=== PATIENT | female | born 1950 | race Two or more races ===

== ENCOUNTER 2017-10-26 07:43 | Outpatient (CLI) | payer OTHER ==
[~2017-10-26 07:43] MED LIST: CATAFLAM50 MG PO; COZAAR50 MG; LIPITOR20 MG; SEPTRA DS TABLE1 TAB PO; SYNTHROID50 MCG
== END 2017-10-26 09:03 | disposition home or self-care (01) ==
LOC: LAB 07:43
DX: C50.912 Malignant neoplasm of unspecified site of left female breast (principal); K92.2 Gastrointestinal hemorrhage, unspecified; E55.9 Vitamin D deficiency, unspecified; E03.8 Other specified hypothyroidism; D89.0 Polyclonal hypergammaglobulinemia; E78.2 Mixed hyperlipidemia; I10 Essential (primary) hypertension; R31.9 Hematuria, unspecified; D70.9 Neutropenia, unspecified

== ENCOUNTER → 2017-11-09 | Outpatient (CLI) | payer OTHER | END | disposition home or self-care (01) | LOC: LAB 08:17 | DX: C50.912 Malignant neoplasm of unspecified site of left female breast (principal); K92.89 Other specified diseases of the digestive system; E55.9 Vitamin D deficiency, unspecified; E03.8 Other specified hypothyroidism; D89.0 Polyclonal hypergammaglobulinemia; E78.00 Pure hypercholesterolemia, unspecified; I10 Essential (primary) hypertension; R31.29 Other microscopic hematuria; D70.8 Other neutropenia ==

== ENCOUNTER 2018-03-26 07:57 | Outpatient (CLI) | payer OTHER | END 2018-03-26 08:06 | disposition home or self-care (01) | LOC: LAB 07:57 | DX: D63.8 Anemia in other chronic diseases classified elsewhere (principal); N39.0 Urinary tract infection, site not specified; D68.8 Other specified coagulation defects; J20.8 Acute bronchitis due to other specified organisms ==

== ENCOUNTER 2018-08-12 13:24 | Emergency (ER) | payer OTHER ==
[~2018-08-12] VITALS: Ht 154.9 cm; Wt 62.6 kg
== END 2018-08-12 18:35 | disposition home or self-care (01) ==
LOC: ER 13:24
DX: S40.011A Contusion of right shoulder, initial encounter (principal); W18.39XA Other fall on same level, initial encounter; Y93.89 Activity, other specified; Y92.098 Other place in other non-institutional residence as the place of occurrence of the external cause; Y99.8 Other external cause status

== ENCOUNTER 2018-10-13 08:10 | Outpatient (CLI) | payer OTHER | END 2018-10-13 08:20 | disposition home or self-care (01) | LOC: LAB 08:10 | DX: C50.911 Malignant neoplasm of unspecified site of right female breast (principal); C50.912 Malignant neoplasm of unspecified site of left female breast; E03.8 Other specified hypothyroidism; E55.9 Vitamin D deficiency, unspecified; E78.00 Pure hypercholesterolemia, unspecified; I10 Essential (primary) hypertension; R31.9 Hematuria, unspecified; D70.8 Other neutropenia ==

== ENCOUNTER 2018-10-19 10:32 | Outpatient (CLI) | payer OTHER | END 2018-10-19 12:43 | disposition home or self-care (01) | LOC: NUCLEAR 10:32 | DX: M81.0 Age-related osteoporosis without current pathological fracture (principal) ==

== ENCOUNTER 2018-12-08 07:31 | Outpatient (CLI) | payer OTHER | END 2018-12-08 08:16 | disposition home or self-care (01) | LOC: LAB 07:31 | DX: M10.072 Idiopathic gout, left ankle and foot (principal) ==

== ENCOUNTER 2018-12-12 08:17 | Outpatient (CLI) | payer OTHER | END 2018-12-12 10:36 | disposition home or self-care (01) | LOC: NUCLEAR 08:17 | DX: I82.409 Acute embolism and thrombosis of unspecified deep veins of unspecified lower extremity (principal); I70.209 Unspecified atherosclerosis of native arteries of extremities, unspecified extremity; I73.9 Peripheral vascular disease, unspecified ==

== ENCOUNTER → 2018-12-13 | Outpatient (CLI) | payer OTHER | END | disposition home or self-care (01) | LOC: NUCLEAR 09:25 | DX: I82.409 Acute embolism and thrombosis of unspecified deep veins of unspecified lower extremity (principal); I70.209 Unspecified atherosclerosis of native arteries of extremities, unspecified extremity ==

== ENCOUNTER 2019-06-21 07:19 | Outpatient (CLI) | payer OTHER | END 2019-06-21 07:26 | disposition home or self-care (01) | LOC: LAB 07:19 | DX: N39.0 Urinary tract infection, site not specified (principal) ==

== ENCOUNTER 2019-10-18 07:42 | Outpatient (CLI) | payer OTHER | END 2019-10-18 07:50 | disposition home or self-care (01) | LOC: LAB 07:42 | DX: C50.912 Malignant neoplasm of unspecified site of left female breast (principal); Z12.11 Encounter for screening for malignant neoplasm of colon; E55.9 Vitamin D deficiency, unspecified; E03.8 Other specified hypothyroidism; E78.00 Pure hypercholesterolemia, unspecified; I10 Essential (primary) hypertension; R31.29 Other microscopic hematuria; D70.8 Other neutropenia ==

== ENCOUNTER 2019-10-20 07:33 | Outpatient (CLI) | payer OTHER | END 2019-10-20 08:13 | disposition home or self-care (01) | LOC: LAB 07:33 | DX: C50.912 Malignant neoplasm of unspecified site of left female breast (principal); Z12.11 Encounter for screening for malignant neoplasm of colon; E55.9 Vitamin D deficiency, unspecified; E03.8 Other specified hypothyroidism ==

== ENCOUNTER 2020-04-04 07:35 | Outpatient (CLI) | payer OTHER | END 2020-04-04 07:43 | disposition home or self-care (01) | LOC: LAB 07:35 | PROVIDERS: ATTEND Internal Medicine Hematology & Oncology | DX: C50.912 Malignant neoplasm of unspecified site of left female breast (principal); E55.9 Vitamin D deficiency, unspecified; E03.8 Other specified hypothyroidism; E11.9 Type 2 diabetes mellitus without complications; E78.00 Pure hypercholesterolemia, unspecified; I10 Essential (primary) hypertension; R31.29 Other microscopic hematuria; M06.9 Rheumatoid arthritis, unspecified; D70.8 Other neutropenia ==

== ENCOUNTER → 2020-05-10 | Outpatient (CLI) | payer OTHER | END | disposition home or self-care (01) | LOC: RAD 10:09 | PROVIDERS: ATTEND Orthopaedic Surgery | DX: M79.622 Pain in left upper arm (principal) ==

== ENCOUNTER 2020-11-22 07:17 | Outpatient (CLI) | payer OTHER | END 2020-11-22 07:25 | disposition home or self-care (01) | LOC: LAB 07:17 | PROVIDERS: ATTEND Internal Medicine Hematology & Oncology | DX: E03.8 Other specified hypothyroidism (principal); E55.9 Vitamin D deficiency, unspecified; C50.912 Malignant neoplasm of unspecified site of left female breast; E78.00 Pure hypercholesterolemia, unspecified; E11.9 Type 2 diabetes mellitus without complications; I10 Essential (primary) hypertension; R31.29 Other microscopic hematuria; M06.8A Other specified rheumatoid arthritis, other specified site; D70.8 Other neutropenia ==

== ENCOUNTER 2021-01-15 08:22 | Emergency (ER) | payer OTHER ==
[~2021-01-15] VITALS: Ht 154.9 cm; Wt 63.5 kg
[2021-01-15] MEDS ORDERED: VALACYCLOVIR500 MG PO (08:53)
[2021-01-15] MEDS ORDERED: AMLODIPINE-OLM1 EAC2 PO (08:54)
[2021-01-15] MEDS ORDERED: ANTI-ITCH28 G1 TOP (12:55)
[2021-01-15] MEDS ORDERED: ZYRTEC10 M3 PO (12:55)
== END 2021-01-15 12:59 | disposition home or self-care (01) ==
LOC: ER 08:22
DX: R21 Rash and other nonspecific skin eruption (principal); S70.362A Insect bite (nonvenomous), left thigh, initial encounter; S70.361A Insect bite (nonvenomous), right thigh, initial encounter; S80.861A Insect bite (nonvenomous), right lower leg, initial encounter; S20.461A Insect bite (nonvenomous) of right back wall of thorax, initial encounter; S50.862A Insect bite (nonvenomous) of left forearm, initial encounter; S50.861A Insect bite (nonvenomous) of right forearm, initial encounter; W57.XXXA Bitten or stung by nonvenomous insect and other nonvenomous arthropods, initial encounter; Y93.01 Activity, walking, marching and hiking; Y92.832 Beach as the place of occurrence of the external cause; Y99.8 Other external cause status

== ENCOUNTER 2021-01-28 14:15 | Outpatient (CLI) | payer OTHER ==
[~2021-01-28 14:15] MED LIST changes: +AMLODIPINE-OLM1 EAC2 PO; +ANTI-ITCH28 G1 TOP; +VALACYCLOVIR500 MG PO; +ZYRTEC10 M3 PO
== END 2021-01-28 14:19 | disposition home or self-care (01) ==
LOC: NUCLEAR 14:15
PROVIDERS: ATTEND Internal Medicine Hematology & Oncology
DX: M81.0 Age-related osteoporosis without current pathological fracture (principal)

== ENCOUNTER 2021-03-16 15:52 | Emergency (ER) | payer OTHER ==
[~2021-03-16] VITALS: Ht 154.9 cm; Wt 60.3 kg
== END 2021-03-16 19:51 | disposition home or self-care (01) ==
LOC: ER 15:52
DX: R21 Rash and other nonspecific skin eruption (principal); L53.8 Other specified erythematous conditions; L30.8 Other specified dermatitis

== ENCOUNTER → 2021-04-15 07:47 | Outpatient (CLI) | payer OTHER | END | disposition home or self-care (01) | LOC: LAB 07:47 | PROVIDERS: ATTEND General Practice | DX: M79.7 Fibromyalgia (principal); E55.9 Vitamin D deficiency, unspecified; E53.8 Deficiency of other specified B group vitamins; E78.2 Mixed hyperlipidemia; Z12.11 Encounter for screening for malignant neoplasm of colon; B18.2 Chronic viral hepatitis C; A64 Unspecified sexually transmitted disease; E03.8 Other specified hypothyroidism; E72.11 Homocystinuria; N39.0 Urinary tract infection, site not specified; M06.9 Rheumatoid arthritis, unspecified ==

== ENCOUNTER 2021-04-15 08:37 | Outpatient (CLI) | payer OTHER | END 2021-04-15 08:42 | disposition home or self-care (01) | LOC: RAD 08:37 | PROVIDERS: ATTEND General Practice | DX: R07.89 Other chest pain (principal) ==

== ENCOUNTER → 2021-04-16 08:38 | Outpatient (CLI) | payer OTHER | END | disposition home or self-care (01) | LOC: LAB 08:38 | PROVIDERS: ATTEND General Practice | DX: Z12.11 Encounter for screening for malignant neoplasm of colon (principal) ==

== ENCOUNTER 2021-12-12 12:20 | Outpatient (CLI) | payer OTHER | END 2021-12-12 13:00 | disposition home or self-care (01) | LOC: NUCLEAR 12:20 | PROVIDERS: ATTEND Orthopaedic Surgery | DX: M81.0 Age-related osteoporosis without current pathological fracture (principal) ==

== ENCOUNTER 2022-03-13 08:40 | Outpatient (CLI) | payer OTHER | END 2022-03-13 08:46 | disposition home or self-care (01) | LOC: LAB 08:40 | DX: E78.1 Pure hyperglyceridemia (principal); I10 Essential (primary) hypertension; E03.8 Other specified hypothyroidism; E53.8 Deficiency of other specified B group vitamins; Z12.11 Encounter for screening for malignant neoplasm of colon ==

== ENCOUNTER 2022-09-16 10:41 | Outpatient (CLI) | payer OTHER | END 2022-09-16 10:42 | disposition home or self-care (01) | LOC: RAD 10:41 | PROVIDERS: ATTEND Orthopaedic Surgery | DX: S60.221A Contusion of right hand, initial encounter (principal) ==

== ENCOUNTER → 2022-12-11 07:41 | Outpatient (CLI) | payer OTHER | END | disposition home or self-care (01) | LOC: LAB 07:41 | PROVIDERS: ATTEND General Practice | DX: E03.8 Other specified hypothyroidism (principal); E78.1 Pure hyperglyceridemia; I10 Essential (primary) hypertension ==

== ENCOUNTER 2022-12-11 08:55 | Outpatient (CLI) | payer OTHER | END 2022-12-11 09:02 | disposition home or self-care (01) | LOC: RAD 08:55 | PROVIDERS: ATTEND Orthopaedic Surgery | DX: S62.654D Nondisplaced fracture of middle phalanx of right ring finger, subsequent encounter for fracture with routine healing (principal) ==

== ENCOUNTER → 2022-12-25 08:14 | Outpatient (CLI) | payer OTHER | END | disposition home or self-care (01) | LOC: NUCLEAR 12-18 13:02 → LAB 08:14 | PROVIDERS: ATTEND Orthopaedic Surgery | DX: E55.9 Vitamin D deficiency, unspecified (principal); M85.9 Disorder of bone density and structure, unspecified; E56.1 Deficiency of vitamin K ==

== ENCOUNTER 2023-04-05 08:24 | Outpatient (CLI) | payer OTHER | END 2023-04-05 08:25 | disposition home or self-care (01) | LOC: LAB 08:24 | DX: C50.912 Malignant neoplasm of unspecified site of left female breast (principal); E55.9 Vitamin D deficiency, unspecified; E03.9 Hypothyroidism, unspecified; K74.60 Unspecified cirrhosis of liver; I10 Essential (primary) hypertension; E78.00 Pure hypercholesterolemia, unspecified; R31.9 Hematuria, unspecified; M06.9 Rheumatoid arthritis, unspecified; D70.9 Neutropenia, unspecified ==

== ENCOUNTER 2023-04-12 07:38 | Outpatient (CLI) | payer OTHER | END 2023-04-12 14:27 | disposition home or self-care (01) | LOC: LAB 07:38 | DX: E78.2 Mixed hyperlipidemia (principal); E03.8 Other specified hypothyroidism; I10 Essential (primary) hypertension; Z12.11 Encounter for screening for malignant neoplasm of colon ==

== ENCOUNTER → 2023-04-14 08:10 | Outpatient (CLI) | payer OTHER | END | disposition home or self-care (01) | LOC: LAB 08:10 | DX: Z12.11 Encounter for screening for malignant neoplasm of colon (principal) ==

== ENCOUNTER 2023-06-22 07:38 | Outpatient (CLI) | payer OTHER | END 2023-06-22 07:40 | disposition home or self-care (01) | LOC: LAB 07:38 | DX: E78.2 Mixed hyperlipidemia (principal); I10 Essential (primary) hypertension; E03.8 Other specified hypothyroidism ==

== ENCOUNTER 2023-10-26 08:02 | Outpatient (CLI) | payer OTHER ==
[2023-10-26 08:40] LABS: PH,URINE 5.5 (5.0-8.0); URINE APPEARANCE Clear; URINE BILIRRUBIN Negative (NEGATIVE); URINE BLOOD Negative; URINE COLOR Yellow; URINE GLUCOSE Negative (NEGATIVE); URINE LEUKOCYTE Negative; URINE NITRATE Negative; URINE PROTEIN Negative (NEGATIVE); URINE UROBILINOGEN 0.2 E.U./dl
[2023-10-26 08:41] LABS: URINE BACTERIA 7.5 uL (0.0-1933); URINE RBC 5.4 uL (0.0-20.8)
[2023-10-26 08:43] LABS: HEMATOCRIT 41.7 % (36.0-45.00); HEMOGLOBIN 14.4 g/dL (12.0-15.00); MEAN CORPUSCULAR HEMOGLOBIN 33.1 pg (27.00-32.0); MEAN CORPUSCULAR HGB CONC 34.5 g/dl (32.0-36.0); PLATELET COUNT 338 K/uL (150-450); RED BLOOD COUNT 4.35 M/uL (4.00-6.00); RED CELL DISTRIBUTION WIDTH 12.5 % (11.5-14.5)
[2023-10-26 09:19] LABS: ALBUMIN 4.1 gm/dL (3.4-5.0); BILIRUBIN TOTAL 0.52 mg/dL (0.3-1.2); CALCIUM 9.4 mg/dL (8.5-10.1); CHOL HDL RATIO 2.8 (0-5.0); CREATININE SERUM 0.76 mg/dL (0.55-1.02); GFR 74.81; GLOBULINA 3.5 G/DL (2.4-3.5); POTASSIUM 4.09 mEq/L (3.5-5.1); TOTAL PROTEIN 7.6 gm/dL (6.4-8.2); TSH 1.85 uIU/mL (0.358-3.74)
== END 2023-10-26 08:03 | disposition home or self-care (01) ==
LOC: LAB 08:02
PROVIDERS: ATTEND General Practice
DX: Z12.11 Encounter for screening for malignant neoplasm of colon (principal); I10 Essential (primary) hypertension; E11.9 Type 2 diabetes mellitus without complications

== ENCOUNTER 2023-10-26 09:09 | Outpatient (CLI) | payer OTHER | END 2023-10-26 09:23 | disposition home or self-care (01) | LOC: RAD 09:09 | PROVIDERS: ATTEND General Practice | DX: M79.641 Pain in right hand (principal); M79.642 Pain in left hand ==

== ENCOUNTER 2023-11-03 07:58 | Outpatient (CLI) | payer OTHER ==
[2023-11-03 12:13] LABS: ob NEGATIVE (NEGATIVE)
== END 2023-11-03 07:59 | disposition home or self-care (01) ==
LOC: LAB 07:58
PROVIDERS: ATTEND General Practice
DX: I10 Essential (primary) hypertension (principal); Z12.11 Encounter for screening for malignant neoplasm of colon; E11.9 Type 2 diabetes mellitus without complications; E03.9 Hypothyroidism, unspecified

== ENCOUNTER → 2023-12-20 10:50 | Outpatient (CLI) | payer OTHER | END | disposition home or self-care (01) | LOC: NUCLEAR 12-17 11:44 | PROVIDERS: ATTEND Specialist | DX: M81.0 Age-related osteoporosis without current pathological fracture (principal) ==

== ENCOUNTER 2024-05-30 07:52 | Outpatient (CLI) | payer OTHER ==
[2024-05-30 08:37] LABS: HEMATOCRIT 41.4 % (36.0-45.00); HEMOGLOBIN 14.2 g/dL (12.0-15.00); MEAN CELL VOLUME 96.3 fL (80.00-100.00); MEAN CORPUSCULAR HEMOGLOBIN 33.2 pg (27.00-32.0); MEAN CORPUSCULAR HGB CONC 34.4 g/dl (32.0-36.0); PLATELET COUNT 284 K/uL (150-450); RED CELL DISTRIBUTION WIDTH 12.7 % (11.5-14.5)
[2024-05-30 08:47] LABS: URINE APPEARANCE Clear; URINE BILIRRUBIN Negative (NEGATIVE); URINE BLOOD Negative; URINE COLOR Yellow; URINE GLUCOSE Negative (NEGATIVE); URINE KETONE Negative (NEGATIVE); URINE LEUKOCYTE Trace; URINE NITRATE Negative; URINE PROTEIN Negative (NEGATIVE); URINE UROBILINOGEN 0.2 E.U./dl
[2024-05-30 08:49] LABS: URINE BACTERIA 57.9 uL (0.0-1933); URINE EPITHELIAL CELLS 12.1 uL (0.0-38.8); URINE RBC 3.3 uL (0.0-20.8); URINE WBC 7.3 uL (0.0-23.2)
[2024-05-30 09:28] LABS: ALBUMIN 4.3 gm/dL (3.4-5.0); BILIRUBIN TOTAL 0.51 mg/dL (0.3-1.2); CALCIUM 9.6 mg/dL (8.5-10.1); CHOL HDL RATIO 2.6 (0-5.0); CREATININE SERUM 0.86 mg/dL (0.55-1.02); GFR 64.86; GLOBULINA 3.6 G/DL (2.4-3.5); POTASSIUM 4.08 mEq/L (3.5-5.1); TOTAL PROTEIN 7.9 gm/dL (6.4-8.2); TSH 1.65 uIU/mL (0.358-3.74)
[2024-05-30 09:31] LABS: URINE CAST 0.15 uL (0.0-1.40)
== END 2024-05-30 08:01 | disposition home or self-care (01) ==
LOC: LAB 07:52
PROVIDERS: ATTEND General Practice
DX: E78.00 Pure hypercholesterolemia, unspecified (principal); I10 Essential (primary) hypertension; E03.8 Other specified hypothyroidism; R73.09 Other abnormal glucose

== ENCOUNTER → 2024-08-01 07:55 | Outpatient (CLI) | payer OTHER ==
[2024-08-01 08:46] LABS: HEMATOCRIT 40.8 % (36.0-45.00); HEMOGLOBIN 14.3 g/dL (12.0-15.00); MEAN CELL VOLUME 96.3 fL (80.00-100.00); MEAN CORPUSCULAR HEMOGLOBIN 33.6 pg (27.00-32.0); MEAN CORPUSCULAR HGB CONC 34.9 g/dl (32.0-36.0); PLATELET COUNT 297 K/uL (150-450); RED BLOOD COUNT 4.24 M/uL (4.00-6.00); RED CELL DISTRIBUTION WIDTH 12.6 % (11.5-14.5)
[2024-08-01 08:51] LABS: ERYTHROCYTE SEDIMENTATION RATE 20 mm/hr
[2024-08-01 09:11] LABS: URINE APPEARANCE Clear; URINE BILIRRUBIN Negative (NEGATIVE); URINE BLOOD Negative; URINE COLOR Yellow; URINE GLUCOSE Negative (NEGATIVE); URINE KETONE Negative (NEGATIVE); URINE LEUKOCYTE Small; URINE NITRATE Negative; URINE PROTEIN Negative (NEGATIVE); URINE UROBILINOGEN 0.2 E.U./dl
[2024-08-01 09:13] LABS: ALBUMIN 4.2 gm/dL (3.4-5.0); BILIRUBIN TOTAL 0.68 mg/dL (0.3-1.2); BILIRUBIN,CONJUGATED 0.13 mg/dL (0.0-0.2); BILIRUBIN,UNCONJUGATED 0.55 mg/dL (0.0-0.6); CALCIUM 9.4 mg/dL (8.5-10.1); CHOL HDL RATIO 2.7 (0-5.0); CREATININE SERUM 0.75 mg/dL (0.55-1.02); GFR 75.96; POTASSIUM 3.9 mEq/L (3.5-5.1); TOTAL PROTEIN 7.8 gm/dL (6.4-8.2)
[2024-08-01 09:15] LABS: URINE BACTERIA 518.9 uL (0.0-1933); URINE EPITHELIAL CELLS 74.9 uL (0.0-38.8); URINE RBC 12.6 uL (0.0-20.8); URINE WBC 24.8 uL (0.0-23.2)
[2024-08-01 09:29] LABS: TSH 1.85 uIU/mL (0.358-3.74)
== END | disposition home or self-care (01) ==
LOC: LAB 07:55
PROVIDERS: ATTEND Internal Medicine Hematology & Oncology
DX: C50.912 Malignant neoplasm of unspecified site of left female breast (principal); K74.60 Unspecified cirrhosis of liver; I10 Essential (primary) hypertension; R31.9 Hematuria, unspecified; M06.9 Rheumatoid arthritis, unspecified; D70.9 Neutropenia, unspecified; E55.9 Vitamin D deficiency, unspecified; E03.9 Hypothyroidism, unspecified; E78.00 Pure hypercholesterolemia, unspecified

== ENCOUNTER 2024-12-15 08:53 | Outpatient (CLI) | payer OTHER ==
[2024-12-15 10:21] LABS: PH,URINE 6.5 (5.0-8.0); URINE APPEARANCE Clear; URINE BILIRRUBIN Negative (NEGATIVE); URINE BLOOD Negative; URINE COLOR Yellow; URINE GLUCOSE Negative (NEGATIVE); URINE KETONE Negative (NEGATIVE); URINE LEUKOCYTE Trace; URINE NITRATE Negative; URINE PROTEIN Negative (NEGATIVE); URINE UROBILINOGEN 0.2 E.U./dl
[2024-12-15 10:23] LABS: HEMATOCRIT 41.9 % (36.0-45.00); HEMOGLOBIN 14.3 g/dL (12.0-15.00); MEAN CELL VOLUME 97.2 fL (80.00-100.00); MEAN CORPUSCULAR HEMOGLOBIN 33.1 pg (27.00-32.0); MEAN CORPUSCULAR HGB CONC 34.1 g/dl (32.0-36.0); PLATELET COUNT 292 K/uL (150-450); RED BLOOD COUNT 4.31 M/uL (4.00-6.00); RED CELL DISTRIBUTION WIDTH 12.4 % (11.5-14.5)
[2024-12-15 10:26] LABS: URINE BACTERIA 232.4 uL (0.0-1933); URINE EPITHELIAL CELLS 15.6 uL (0.0-38.8); URINE RBC 7.6 uL (0.0-20.8); URINE WBC 7.9 uL (0.0-23.2)
[2024-12-15 11:16] LABS: ALBUMIN 4.2 gm/dL (3.4-5.0); BILIRUBIN TOTAL 0.57 mg/dL (0.3-1.2); CALCIUM 9.1 mg/dL (8.5-10.1); CHOL HDL RATIO 2.7 (0-5.0); CREATININE SERUM 0.71 mg/dL (0.55-1.02); GFR 80.69; GLOBULINA 3.5 G/DL (2.4-3.5); POTASSIUM 4.02 mEq/L (3.5-5.1); TOTAL PROTEIN 7.7 gm/dL (6.4-8.2); TSH 1.4 uIU/mL (0.358-3.74)
[2024-12-15 13:36] LABS: VITAMIN D3 25 HYDROXY 94.88 ng/ml (30-120)
== END 2024-12-15 08:58 | disposition home or self-care (01) ==
LOC: LAB 08:53
DX: E55.9 Vitamin D deficiency, unspecified (principal); R73.9 Hyperglycemia, unspecified; E53.9 Vitamin B deficiency, unspecified; R50.9 Fever, unspecified; E78.2 Mixed hyperlipidemia; N39.0 Urinary tract infection, site not specified; E03.8 Other specified hypothyroidism; E72.11 Homocystinuria